=== PATIENT | female | born 1985 | race Caucasian/White ===

== ENCOUNTER 2024-10-26 11:14 | Day surgery (SDC) | payer SELFPAY ==
[2024-10-20 13:59] VITALS: BMI 27.4
[2024-10-26] MEDS ORDERED: BUPIVACAINE HCL/EPINEPHRINE/PF 30 ML VIAL IJ ONE (12:03)
[2024-10-26] MEDS ORDERED: PROPOFOL 60 ML ONE (12:38)
[2024-10-26] MEDS ORDERED: MIDAZOLAM HCL 2 MG/2 ML SINGLE DOSE VIAL ONE (12:38)
[2024-10-26] MEDS ORDERED: SUCCINYLCHOLINE CHLORIDE 200 MG/10 ML SYRINGE ONE (12:40)
[2024-10-26] MEDS ORDERED: ROCURONIUM BROMIDE 50 MG/5 ML SYRINGE ONE ×2 (12:40→14:22)
[2024-10-26] MEDS ORDERED: ePHEDrine SULFATE 50 MG/1 ML AMPULE ONE (12:40)
[2024-10-26] MEDS ORDERED: EPINEPHrine 1:1000 P/F - 1 MG/ML AMP ONE (13:00)
[2024-10-26] MEDS ORDERED: LIDOCAINE HCL 2% (20ML MULTI-DOSE VIAL) ONE (13:00)
[2024-10-26] MEDS ORDERED: HEPARIN NA (PORCINE) 5,000 UNITS/ML 1ML VIAL ONE (13:54)
[2024-10-26] MEDS ORDERED: BUPIVACAINE LIPOSOME/PF (EXPAREL) 266 MG/20 ML VIAL ONE (14:00)
[2024-10-26] MEDS ORDERED: DEXAMETHASONE SOD PHOSPHATE 4 MG/1 ML VIAL ONE ×2 (14:04→14:22)
[2024-10-26] MEDS ORDERED: SUGAMMADEX SODIUM 200 MG/2 ML VIAL ONE (15:50)
[2024-10-26] MEDS ORDERED: ONDANSETRON 4 MG/2 ML VIAL IVPUSH PRN (16:44)
[2024-10-26] MEDS ORDERED: LACTATED RINGERS SOLUTION 1,000 ML IV SCH (16:45)
[2024-10-26] MEDS ORDERED: PROMETHAZINE HCL 25 MG/1 ML VIAL IVPB PRN (16:56)
[2024-10-26] MEDS ORDERED: KETOROLAC TROMETHAMINE 30 MG/1 ML VIAL ONE (17:25)
[2024-10-26] MEDS ORDERED: HEPARIN NA (PORCINE) 5,000 UNITS/ML 1ML VIAL SQ SCH (18:00)
[2024-10-26 18:42] VITALS: PULSE 67; RESP 19; TEMP 98.2
[2024-10-26] MEDS: ONDANSETRON *ODT* 4 MG TABLET ONE (19:15)
[2024-10-26 19:46] VITALS: BP 107/66
== END 2024-10-26 19:45 | disposition home or self-care (01) ==
LOC: FASU 11:14
PROVIDERS: ATTEND Plastic Surgery
PROC: 0J083ZZ Alteration of Abdomen Subcutaneous Tissue and Fascia, Percutaneous Approach (ICD-10-PCS; 2024-10-26)
PROC: 0W0F0ZZ Alteration of Abdominal Wall, Open Approach (ICD-10-PCS; principal; 2024-10-26 14:28)
DX: E88.1 Lipodystrophy, not elsewhere classified (principal)
CPT/HCPCS: 81025; 94760; J0666; J1644; Q0162